=== PATIENT | male | born 1975 | race Caucasian/White ===

== ENCOUNTER 2025-03-21 11:52 | Emergency (ER) | payer OTHER, SELFPAY ==
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
[2025-03-21 12:03] VITALS: BP 147/92; PULSE 95; RESP 18; TEMP 36.2; O2SAT 95
--- NOTE | 2025-03-21 12:07 | NUR.NOTE ---
Jolly [phone] Silvestre Lara [phone] camp contact Nursing Note:
[2025-03-21] MEDS: MORPHine 4 MG/ML SYR IVP ×2 (12:36→14:58)
[2025-03-21] MEDS: Normal Saline 1,000 ML 1000 ML IV (12:37)
[2025-03-21] MEDS: Lidocaine/Epinephri/Tetracaine Topical Gel 3 ML TP (12:38)
[2025-03-21 13:01] LABS: Abs Immature Grans 0.11 10^3/uL (0.0-0.06); HCT 50.6 % (40.0-50.0); HGB 17.1 g/dL (13.5-17.5); Immature Grans % 0.7 %; MCH 29.3 pg (27.0-33.0); MCHC 33.8 % (32.0-36.0); MCV 87 fL (80-95); MPV 10.5 fL (8.0-11.0); Platelet Count 269 10^3/uL (130-400); RBC 5.83 10^6/uL (4.36-5.78); RDW 13.1 % (11.8-14.1); RDW-SD 40.4 fL; WBC 14.94 10^3/uL (4.4-10.8)
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
[2025-03-21 13:50] LABS: Anion Gap 8.8 mmol/L (3-11); BUN 19 mg/dL (7-18); CO2 30.2 mmol/L (21.0-32.0); Calcium 9.7 mg/dL (8.5-10.1); Chloride 103 mmol/L (98-107); Estimated GFR 66.10 (mL/min/1.73m2); Glucose 109 mg/dL (74-106); Lipase 44 U/L (<78); Potassium 4.1 mmol/L (3.5-5.1); Sodium 142 mmol/L (136-145)
[2025-03-21 14:52] VITALS: BP 141/84; PULSE 80; RESP 18; O2SAT 95
[2025-03-21] MEDS: Ondansetron O.D.T. 4 MG TABEF PO (14:59)
[2025-03-21 15:00] VITALS: BP 123/78; PULSE 85; RESP 16; TEMP 36.9; O2SAT 99
== END 2025-03-21 17:00 | disposition home or self-care (01) ==
LOC: ER 16:32
PROVIDERS: Emergency Provider Emergency Medicine
DX: S00.81XA Abrasion of other part of head, initial encounter (principal); Y93.55 Activity, bike riding; V18.0XXA Pedal cycle driver injured in noncollision transport accident in nontraffic accident, initial encounter
CPT/HCPCS: 99284 ×2; 96374; 96376; 36415; 80048; 83690; 86850; 86900; 86901; 96361; 70450; 70486; 71045; 72125; 80320; 85025; J2270